=== PATIENT | female | born 1990 | race Two or more races ===

== ENCOUNTER 2025-03-16 13:35 | Emergency (ER) | payer MEDICAID, SELFPAY ==
[2025-03-16 13:50] VITALS: BP 124/85; PULSE 62; RESP 18; TEMP 36.8; O2SAT 97
--- NOTE | 2025-03-16 14:05 | XR_ITS ---
Examination: Complete OB ultrasound, less than 14 weeks, transabdominal Date and time of exam: 03/16/2025 at 2:38 p.m. INDICATION: Pelvic pain and discharge for 2 days during COMPARISON: None pertinent to this . Technique: Obstetrical ultrasound images less than 14 weeks performed via transabdominal imaging Findings: A gestational sac with pole and yolk sac is identified at the uterine fundus. cardiac activity is visualized, measuring 160 bpm. CRL measures 9 weeks 0 days, consistent with 9 weeks 0 days old gestation. US LUCIANA is 10/19/2025. Based on provided LMP of 01/09/2025, clinical gestational age is 9 weeks 3 days with clinical LUCIANA of 10/16/2025. No evidence for subchorionic hematoma. The uterus measures 10.5 x 7.2 x 6.7 cm. No fibroids are detected but the cervix is closed. Both ovaries are normal in appearance, measuring 3.7 x 2.4 x 2.1 cm on the right side and 3.2 x 2.0 x 1.9 cm on the left side. Both ovaries demonstrate intact blood flow on color Doppler; no torsion. No adnexal mass or free pelvic fluid. IMPRESSION: Single live IUP as described at the uterine fundus. No acute abnormality detected.
--- NOTE | 2025-03-16 14:05 | PD.EDFMALE ---
ED Female Urogenital RME/HPI General Chief complaint: Urogenital-Female Stated complaint: ABD PAIN AND MUCOUS FOR 2 DAYS, + PREG Time Seen by Provider: 03/16/25 13:54 Arrival date/time: 03/16/25 13:35 34-year-old female patient came in for evaluation regarding low back pain and pelvic pain. Patient is 6 para 4 1, about 5 to 6 weeks , came in this morning sudden onset of pelvic pain, low low back pain, described as dull ache severity moderate. Patient denies any vaginal bleeding however noticed dark-colored discharges. Denies any vomiting fever abdominal pain or other complaints. Have not seen any OB for checkup. Related Data Home Medications ?Medication ?Instructions ?Recorded ?Confirmed vit no.95-ferrous 1 tab PO QDAY 05/06/23 05/06/23 fumarate 28 mg-folic acid 800 mcg tablet () Allergies Allergy/AdvReac Type Severity Reaction Status Date / Time No Known Allergies Allergy Verified 03/16/25 13:41 Review of Systems Review of Systems Narrative Review of Systems: Review of system reviewed and within normal limits except mentioned in HPI ED Exam Narrative Physical exam: VITAL SIGNS: Reviewed. GENERAL APPEARANCE: Alert and interactive, follows commands, no acute distress, HEAD AND FACE: Non-traumatic. ENT: PERRL, pink conjunctivitis, eyelid no trauma, Mucous membrane moist. NECK: Supple, nontender, no nuchal rigidity. CHEST: No tenderness, no crepitus, no paradoxical movement, no retractions. LUNGS: Clear, well ventilated, symmetric, no rales, no wheezing, no ronchi, no stridor, good breath sounds bilaterally. HEART: Regular rate, regular rhythm, no murmur, no gallops. ABDOMEN: Soft, positive bowel sounds, nondistended, no guarding, nontender, no rebound, no masses, RECTAL: Deferred. GENITAL: Deferred. NEUROLOGICAL: Gross motor function intact sensory function intact, Appropriate for age. MUSCULOSKELETAL: low back nontender, full range of motion. EXTREMITIES: Nontender, full range of motion. SKIN: Color pink, dry, no rash, no lacerations, no abrasions, no contusions. LYMPHATICS: Deferred. Course Quality Measures none Orders Category Date Time Status US OB <= 14 weeks fetus Stat Exams 03/16/25 14:05 Completed ABO/RH Type Stat Lab 03/16/25 14:14 Completed Basic Metabolic Panel Stat Lab 03/16/25 14:14 Completed Beta HCG,Quantitative Stat Lab 03/16/25 14:14 Completed CBC Stat Lab 03/16/25 14:14 Completed Urinalysis Stat Lab 03/16/25 14:55 Completed Vital Signs Vital signs: Vital Signs Temperature 98.2 F 03/16/25 13:50 Pulse Rate 62 03/16/25 13:50 Respiratory Rate 18 03/16/25 13:50 Blood Pressure 124/85 H 03/16/25 13:50 Pulse Oximetry (%) 97 03/16/25 13:50 Oxygen Delivery Method Room Air 03/16/25 13:50 Urogenital - Female MDM Narrative MDM Narrative:: 34-year-old female patient came in for evaluation regarding low back pain and pelvic pain. Patient is 6 para 4 1, about 5 to 6 weeks , came in this morning sudden onset of pelvic pain, low low back pain, described as dull ache severity moderate. Patient denies any vaginal bleeding however noticed dark-colored discharges. Denies any vomiting fever abdominal pain or other complaints. Have not seen any OB for checkup. Patient's workup today all came back unremarkable. Ultrasound of single showed single live intrauterine gestation about 9 weeks gestation. No abnormality noted results discussed with the patient. Patient stable for discharge home urinalysis no UTI. Patient data External records reviewed:: None Clinical information provided by:: patient Social determinants that could affect healthcare access:: none Patient has the following chronic illnesses:: None How is presenting disease/condition affected by chronic disease/condition?: no chronic disease Evaluation data The following diagnostics were reviewed and interpreted by me:: lab results and radiology exam(s) Lab and/or radiology exams considered but not ordered:: None Interpretation Summary: See MDM Medications / Prescriptions Medications or Prescriptions considered but not ordered:: None Medication administrations:: See [facility] Consultations Consultation(s) initiated? (list below): No Diagnosis Urogenital Female Differential Diagnosis: urinary tract infection, bacterial vaginosis and other (, abnormal vaginal discharge) Most likely diagnosis given after review of the tests above:: Admission Indicated Admission indicated?: not indicated Admission Request Was there a request for admission?: No Disposition Plan Disposition Plan: Discharge Discharge Attestation Discharge Attestation: The patient and all family members were given an opportunity to ask questions and understood the discharge instructions. Discharge instructions specifically effects, indications for sooner follow up or return to the emergency department, and the expected course of current diagnosis. Patient condition: Stable Discharge Plan Plan Patient Disposition: HOME (Self Care) Discharge Disposition comment: Stable Prescriptions/Referrals Prescriptions/Med Rec: No Action PNV no.95-ferrous fumarate-FA [] 28 mg iron- 800 mcg tablet 1 tab PO QDAY Patient Comments: TAKE 1 TABLET BY MOUTH EVERY DAY Referrals: Stan Avalos MD [Primary Care Provider, Family Practice] - In 1 week Problem List Clinical Impression: Patient/Caregiver Discharge Instructions Discharge Activity: activity as tolerated Education Materials: What Is Care? Additional Instructions: Thank you for the opportunity for serving you today. You are stable for discharged . You are advised to: Follow-up with your PCP in 1 to 2 days and asked for referral to [facility] for checkup Return to ED for worsening of symptoms Increase oral fluids Your workup today including urinalysis all came back unremarkable no infection in the urine, ultrasound of showed you are having a single live intrauterine gestation about 9 weeks old no abnormality noted at this time Print Language: Swedish Stand Alone Forms: Tammy Award Info., Patient Portal Info Letter EDD/JERRY Supervising Physician EDD/JERRY Supervising Physician: MD Kasi
[2025-03-16 14:42] LABS: Basophils # (Auto) 0.1 Thou/mm3 (0.0-0.2); Basophils % (Auto) 1 % (0-2.5); Eosinophils # (Auto) 0.3 Thou/mm3 (0.0-0.5); Eosinophils % (Auto) 3 % (0-10); Hematocrit 38.4 % (36.0-46.0); Hemoglobin 13.6 g/dL (12.0-16.0); Immature Granulocytes Auto 0.08 Thou/mm3 (0.00-0.00); Lymphocytes # (Auto) 2.8 Thou/mm3 (1.0-4.8); Lymphocytes % (Auto) 26 % (10-50); Mean Corpuscular HGB Conc 35.4 g/dl (31.0-37.0); Mean Corpuscular Hemoglobin 31.2 pg (25.0-35.0); Mean Corpuscular Volume 88 fL (80-100); Monocytes # (Auto) 0.8 Thou/mm3 (0.0-0.8); Monocytes % (Auto) 8 % (0-12); Neutrophils # (Auto) 6.8 Thou/mm3 (1.8-7.7); Neutrophils % (Auto) 63 % (37-80); Nucleated Red Blood Cell # 0.00 Thou/mm3 (0.00-0.00); Nucleated Red Blood Cell % 0 /100 WBC (0); Platelet Count 303 Thou/mm3 (140-440); RDW Standard Deviation 44.1 fL (36.4-46.3); Red Blood Count 4.36 Miln/mm3 (4.00-5.20); White Blood Count 10.8 Thou/mm3 (3.6-11.0)
[2025-03-16 15:08] LABS: Anion Gap 9 (7-16); BUN/Creatinine Ratio 13 Ratio (12-20); Blood Urea Nitrogen 8 mg/dL (9-23); Calcium 9.4 mg/dL (8.3-10.6); Carbon Dioxide 24.7 mMol/L (20.0-31.0); Chloride 105 mMol/L (98-107); Creatinine (Component) 0.6 mg/dL (0.6-1.3); Estimated Creatinine Clearance 134.7 mL/min (>60); Glucose 91 mg/dL (74-106); Osmolality,Calculated 275 (275-295); Potassium 4.1 mMol/L (3.4-5.1); Sodium 139 mMol/L (136-145); eGFR > 60 See Note
[2025-03-16 15:08] LABS: Collection Type, Urine Clean Catch; Squamous Epithelial Cell,Urine 0 /hpf (0-5)
[2025-03-16 15:21] LABS: Bilirubin,Urine Negative (Negative); Blood,Urine Negative (Negative); Clarity,Urine Clear (Clear/Hazy); Color,Urine Colorless (Lt Yel-Yel); Glucose, Urine Negative (Negative); Ketones,Urine Negative (Negative); Leukocyte Esterase,Urine Negative (Negative); Nitrite,Urine Negative (Negative); PH,Urine 6.5 (5.0-7.0); Protein,Urine Negative (Neg - Trace); RBC,Urine 1 /hpf (0-3); Specific Gravity,Urine 1.003 (1.001-1.035); Urobilinogen,Urine Negative mg/dL (0.0-1.0); WBC,Urine < 1 /hpf (0-5)
[2025-03-16 15:39] LABS: Beta HCG,Quantitative 57728 mIU/mL (<5.0)
== END 2025-03-16 16:52 | disposition home or self-care (01) ==
PROVIDERS: Emergency Provider Nurse Practitioner Family; PCP Family Medicine
DX: O26.891 Other specified pregnancy related conditions, first trimester (principal); Z3A.01 Less than 8 weeks gestation of pregnancy; M54.50 Low back pain, unspecified; R10.20 Pelvic and perineal pain unspecified side
CPT/HCPCS: 36415; 76801; 80048; 81001; 84702; 85025; 86900; 86901; 99283

== ENCOUNTER 2025-04-28 10:55 | Outpatient (AMB) | payer MEDICAID, SELFPAY ==
[2025-04-28 11:19] VITALS: BP 120/72; PULSE 69; RESP 14; TEMP 36.6; O2SAT 96; BMI 29.2
--- NOTE | 2025-04-28 11:19 | OBCLNT_ITS ---
Vital Signs 04/28/25 11:19 Height 1.63 m Height Method Stated Weight 77.678 kg Weight Measurement Method Standing Scale BMI 29.2 BP 120/72 Blood Pressure Source Automatic Cuff Blood Pressure Location Left Upper Arm Position Sitting Respiration 14 Pulse 69 Pulse Source Monitor Temp 97.8 F Temp Source Oral Pulse Oximetry (%) 96 Oxygen Delivery Method Room Air Allergies/Home Meds Allergies & Medications Allergies No Known Allergies Allergy (Verified 04/28/25 11:21) Medication Reconciliation vit no.95-ferrous fumarate 28 mg-folic acid 800 mcg tablet () 1 tab PO QDAY 05/06/23 [History Confirmed 04/28/25] Intake Visit Data Collection New Patient or Established: Established Patient (seen at [facility] within 3 years) Reason for Visit:: INITIAL CARE Seen by Clinical Staff ONLY (RN/MA): No Language: MINGO DAVILA Imp[employer]ating [employer] Operator Required: No Do You Feel Safe at Home: Yes Authorities Contacted: N/A PCP or OBGYN visit in last 3 months: Yes Hx Now: Yes Are you currently on any form of Control: No Last menstrual period: 01/09/25 Pain Present Currently: No Pain Scale Used: Bales-Garcia/Numerical Pain scale:: 0 Smoking Status Smoking Status: Never smoker Immunizations Flu Vaccine in the Last 12 Months: Yes Date of most recent flu vaccination: 04/28/25 Flu Vaccine Exclusion Criteria: Already Received Questionnaires Covid-19 Vaccine Questionnaire Has patient been vacinated for Covid-19 Have you been vacinated for Covid-19: Yes PHQ-9 PHQ-2 Over the last 2 weeks, how often have you been bothered by any of the following problems? 1. Little interest or pleasure in doing things: not at all 2. Feeling down, depressed, or hopeless: not at all Total score: 0 PHQ-9 3. Trouble falling or staying asleep, or sleeping too much: Not at all 4. Feeling tired or having little energy: Not at all 5. Poor appetite or overeating: Not at all 6. Feeling bad about yourself - or that you are a failure or have let yourself or your family down: Not at all 7. Trouble concentrating on things, such as reading the newspaper or watching television: Not at all 8. Moving or speaking so slowly that other people could have noticed? - Or the opposite - being so fidgety or restless that you have been moving around a lot more than usual: not at all 9. Thoughts that you would be better off or of hurting yourself in some way: Not at all Total score: 0 Source: Developed by Drs. Hernandez Navarrete, Patsy Garza, Channing Reese and colleagues, with an educational daja from [employer]. Depression screen completed yes Social History Living Situation History Marital Status: Lives With: Family Housing: Apartment Tobacco History Smoking Status: Never smoker Second Hand Smoke Exposure: No Alcohol History Alcohol Intake: Never Domestic Abuse History Do You Feel Safe at Home: Yes History of Present Illness HPI Narrative ? 34Years old G6?P?4at gestational age 15.3 weeks ?based on bedside US today . 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: Past Medical History Past Medical History: No Hx Neurological Disorders, No Hx Breast Cancer, No Hx Cardiac Disorders, No Hx Cancer, No Hx Blood Disorders, No Hx Gastrointestinal Disorders, No Hx Renal Disease, No Hx Diabetes Mellitus Type 1, No Hx Diabetes Mellitus Type 2 and No Hx Hysterectomy OB Initial Visit OB Flowsheet OB Flowsheet Initial Weight: Not Recorded Date -?-?-?-?-?-?-?-?-?-?-?-?- EGA Weight BP Alb Glu CTX Pres Fundal ht FHR Mov Dilation Station Effacement Hx Notes Visit Note 04/28/25 -?-?-?-?-?-?-?-?-?-?-?-?- 15w 3d 77.678 kg 120/72 15 140 Menstrual History Menstrual reliability: definite Flow: normal Menstrual regularity: irregular Monthly: No Age at menarche: 11 On control pills at conception: No Associated symptoms (LMP): Reports nausea, fatigue and breast tenderness OB History : 6 Para: 4 Hx Total # of Abortions (Spontaneous & Elective): 1 # of Living Children: 4 Delivery History 1st : Child's name: BONNY date: 04/25/11 sex: female Gestational age at delivery (weeks): 41 Delivery type: Delivery complications: NONE History of depression before or after : No 2nd : Child's name: TIFFANI date: 07/20/14 sex: female Gestational age at delivery (weeks): 37 Delivery type: History of depression before or after : No 3rd : Child's name: TOMMY date: 03/25/18 sex: male Gestational age at delivery (weeks): 37 Delivery type: Delivery complications: NONE History of depression before or after : No 4th : Child's name: MARIANELA date: 05/06/23 sex: male Gestational age at delivery (weeks): 37 Delivery type: Delivery complications: NONE History of depression before or after : No Infection History & Risk Evaluation History of STDs: none Genetic Screening & History Genetic Screening/Teratology Counseling - Includes patient, baby's father, or anyone in either family with: 1. Patient's age 35 years or older as of estimated date of delivery: No 2. Thalassemia (Mosotho, Ukrainian, Mediterranean, or Background); MCV less than 80: No 3. Neural Tube Defect (Meningomyelocele, Spina Bifida, or Anencephaly): No 4. Congenital Heart Defect: No 5. Down Syndrome: No 6. Bennett-Sachs (Ashkenazi Methodist, Cajun, Luxembourgish [place]): No 7. Cristina Disease (Ashkenazi Methodist): No 8. Familial Dysautonomia (Ashkenazi Methodist): No 9. Sickle Cell Disease or Trait (): No 10. Hemophilia or other blood disorders: No 11. Muscular Dystrophy: No 12. Cystic Fibrosis: No 13. Bracken's Chorea: No 14. Mental Retardation/Autism: No 15. Other inherited genetic or chromosomal disorder: No 16. Maternal Metabolic Disorder (EG,TYPE 1 Diabetes, PKU): No 17. Patient or baby's father had a child with defects not listed above: No 18. Recurrent loss or a stillbirth: No 19. Medications (including supplements, vitamins, herbs or otc drugs)/illicit/recreational drugs/alcohol since last menstrual period: No 20. Any other: No Infection History 1. Live with someone with TB or exposed to TB: No 2. Rash or viral illness since last menstrual period: No 3. Hepatitis B,C: No Other (see comments) Source: [employer] Review of Systems Review of Systems Systems Reviewed: All systems reviewed, normal except as documented Constitutional Constitutional: Reports fatigue Gastrointestinal Gastrointestinal: Reports nausea Endocrine Endocrine: Reports fatigue Exam Narrative Physical exam: Alert and oriented x 3 no shortness of breath Pain no chest pain no palpitations Chest clear bilaterally no additional sounds, no wheezing no rales CVS regular rate and rhythm No CVAT Abdomen nontender, normal bowel sounds No guarding no rigidity No hernias Office Procedures O[facility] Clinic LOC & Office Proc's Nursing/Assessment Patient Status: Established Patient OB Clinic Nursing Assessment: Medication Reconciliation, Update PMH in EMR and Vital Signs OB Clinic Coordination of Care: Complex Care and Chronic Disease 1-5, Con sent,records obtained, informed consent, Education Simp Pt/Fam, 1 Ins Authorization, Lab and Imaging orders, Results/Orders obtained and Staff clarify orders Special Needs: Heart tones Established Patient Charge Established Patient Point Assignment: 150 Established Patient Point Charge: EP Level 4 (120-155) Injection/Vaccine Admin Admin 1st Vaccine: Yes Assessment & Plan Diagnosis / Problem List (1) Previous section: Status: Acute (2) : Status: Acute Qualifiers: Weeks of gestation: 15 weeks Qualified Code(s): Z3A.15 - 15 weeks gestation of Additional Assessment Visit Date: 04/28/25?? Last Updated by: Delicia Boothe MD 34 years old , previous 4 c sections sent for PNC at 15.3 weeks by bedside US today / high risk for PAS / refer to perinatology/ Flu vaccine today O positive / rubella immune/ RPR NR/ HIV NR / GC and CT negative / Her CBC is normal / Hep B and hep C negative / order NIPT/ MSAFP and refer to perinatology /she has PNV and is taking them Additional Plan Follow Up: 4 Weeks
== END 2025-04-28 12:10 | disposition home or self-care (01) ==
LOC: HODSOBC 10:55
PROVIDERS: Supervising Provider Obstetrics & Gynecology; Visit Provider Obstetrics & Gynecology
DX: O09.292 Supervision of pregnancy with other poor reproductive or obstetric history, second trimester (principal); O34.219 Maternal care for unspecified type scar from previous cesarean delivery; Z23 Encounter for immunization; Z3A.15 15 weeks gestation of pregnancy
CPT/HCPCS: 90471; 90686; 99214; G0463; J9060